=== PATIENT | female | born 1955 | race Caucasian/White ===

== ENCOUNTER → 2018-02-25 | Outpatient (CLI) | payer BC ==
[~2018-02-25] MED LIST: ACTOS30 MG PO; BETAPACE 80MG80 MG PO; CINNAMON500 MG PO; CRESTOR5 MG PO; GARLIC; LASIX 40MG TABL40 MG PO; TOPROL XL 25MG25 MG PO
== END ==
LOC: COL.RAD 07:55
DX: R11.2 Nausea with vomiting, unspecified (principal)
CPT/HCPCS: A9541

== ENCOUNTER 2022-04-20 07:17 | Day surgery (SDC) | payer MEDICARE, OTHER ==
[~2022-04-20] VITALS: Ht 167.8 cm; Wt 130.7 kg
[2022-04-20 08:12] VITALS: BP 126/75; PULSE 85; TEMP 98.7
[2022-04-20] MEDS ORDERED: ASPIRIN 81M81 MG/TA2 PO (08:17)
[2022-04-20] MEDS ORDERED: PLAVIX 75MG TAB75 MG PO (08:18)
[2022-04-20] MEDS ORDERED: GLUCOTROL 5M5 MG/TAB PO (08:19)
[2022-04-20] MEDS ORDERED: HUMIRA(CF)40 MG/0.4 SQ ×2 (08:19→08:22)
[2022-04-20] MEDS ORDERED: COZAAR 25MG25 MG/TAB PO (08:22)
[2022-04-20] MEDS ORDERED: NITROSTAT0.4 MG/TAB SL (08:23)
[2022-04-20] MEDS ORDERED: TRESIBA FL100 UNIT/1 SQ (08:24)
[2022-04-20] MEDS ORDERED: VICTOZA6 MG/ML SQ (08:24)
--- NOTE | 2022-04-20 08:50 | NUR ---
PT STATES SHE IS FEELING LIGHT HEADED. SHE WOULD LIKE HER GLUCOSE CHECKED. BG WAS 46. DR. WONG AT BEDSIDE AND AWARE. GAVE PT ORANGE JUICE, PEANUT BUTT, ROSALBA CRACKERS AND A GRANOLA BAR. WILL RECHECK BEFORE PT LEAVES.
[2022-04-20] MEDS ORDERED: LIPITOR 80MG80 MG PO (09:33)
[2022-04-20 10:10] VITALS: BP 186/77; PULSE 82
--- NOTE | 2022-04-20 10:15 | NUR ---
POST VITALS TAKEN. BP SLIGHTLY ELEVATED. BUT PT HAD JUST BEEN UP GETTING DRESSED. PT STATES SHE FEELS GOOD. RESPS EVEN AND UN LABORED. PT AMBULATES TO ELEVATOR EVENLY.
== END 2022-04-20 10:16 | disposition home or self-care (01) ==
LOC: COL.CAR 07:17
DX: R55 Syncope and collapse (principal); I10 Essential (primary) hypertension; I47.1 Supraventricular tachycardia; I25.10 Atherosclerotic heart disease of native coronary artery without angina pectoris; I25.2 Old myocardial infarction; I08.1 Rheumatic disorders of both mitral and tricuspid valves; E11.22 Type 2 diabetes mellitus with diabetic chronic kidney disease; E66.01 Morbid (severe) obesity due to excess calories; N18.30 Chronic kidney disease, stage 3 unspecified; M79.662 Pain in left lower leg; M79.661 Pain in right lower leg; R60.0 Localized edema; Z95.5 Presence of coronary angioplasty implant and graft; Z79.4 Long term (current) use of insulin; Z68.42 Body mass index [BMI] 45.0-49.9, adult; Z79.84 Long term (current) use of oral hypoglycemic drugs; Z79.899 Other long term (current) drug therapy
CPT/HCPCS: 27886; C1764